=== PATIENT | male | born 1975 | race Caucasian/White ===

== ENCOUNTER 2017-02-13 22:55 | Observation (INO) | payer OTHER ==
[~2017-02-13] VITALS: Ht 182.9 cm; Wt 81.6 kg
[2017-02-14 01:47] LABS: HEMOGLOBIN 11.8 gm/dl (14.0-17.5); RED BLOOD COUNT 5.15 M/UL (4.20-5.50); WHITE BLOOD COUNT 17.2 K/UL (4.5-11.0)
[2017-02-14 01:55] LABS: BUN/CREATININE RATIO 13 (0-10)
[2017-02-14 14:13] LABS: BUN/CREATININE RATIO 12 (0-10)
[2017-02-15 03:07] LABS: HEMOGLOBIN 10.3 gm/dl (14.0-17.5); WHITE BLOOD COUNT 16.4 K/UL (4.5-11.0)
[2017-02-15 03:08] LABS: RED BLOOD COUNT 4.57 M/UL (4.20-5.50)
[2017-02-15 03:14] LABS: BUN/CREATININE RATIO 14 (0-10)
[2017-02-15] MEDS ORDERED: MEGACE400 MG/10 PO (12:44)
[2017-02-15] MEDS ORDERED: LEVAQUIN250 MG PO (12:45)
[2017-02-15] MEDS ORDERED: MAG-OX 400 TAB400 MG GT (12:46)
[2017-02-15] MEDS ORDERED: KLOR-CON M2020 MEQ PO (12:49)
[2017-02-15] MEDS ORDERED: LORTAB 7.5-3251 EACH PO (12:50)
[2017-02-15] MEDS ORDERED: ROXICODONE TAB 55 MG PO (12:51)
[2017-02-15] MEDS ORDERED: ZESTRIL/PRINIVI10 MG PO (12:52)
[2017-02-15] MEDS ORDERED: LOPRESSOR 25 MG25 MG PO (12:54)
== END 2017-02-15 13:55 | disposition home or self-care (01) ==
LOC: ER1 22:55 → M/S 02-14 08:01 → ZEROF 02-14 08:01 → M/S 02-14 08:01
PROVIDERS: Family Medicine; ADMIT Internal Medicine
DX: C18.9 Malignant neoplasm of colon, unspecified (principal); N39.0 Urinary tract infection, site not specified; B96.89 Other specified bacterial agents as the cause of diseases classified elsewhere; R10.9 Unspecified abdominal pain; E87.6 Hypokalemia; I10 Essential (primary) hypertension; E83.42 Hypomagnesemia; G89.29 Other chronic pain; M54.9 Dorsalgia, unspecified; F17.210 Nicotine dependence, cigarettes, uncomplicated; Z79.891 Long term (current) use of opiate analgesic; Z79.899 Other long term (current) drug therapy; Z88.8 Allergy status to other drugs, medicaments and biological substances
CPT/HCPCS: 36415; 80048; 80053; 81001; 82150; 83690; 83735; 83880; 84100; 84132; 85025; 87077; 87086; 87186; 96372; 96374; 96375; 96376; 99285; G0378; J1650; J2270; J2405; J7030; J7050; Q9962